=== PATIENT | female | born 1985 | race Caucasian/White ===

== ENCOUNTER 2019-02-09 16:34 | Inpatient (IN) | payer MEDICAID ==
[2019-03-30 21:27] LABS: ADD UMIC YES; UR ASCORBIC ACID NEGATIVE (NEGATIVE); UR BACTERIA FEW /HPF (NONE SEEN); UR BILIRUBIN (Dip) NEGATIVE (NEGATIVE); UR BLOOD (Dip) 3+ mg/dL (NEGATIVE); UR CLARITY CLEAR (CLEAR); UR COLOR STRAW (YELLOW); UR GLUCOSE (Dip) NEGATIVE (NEGATIVE); UR KETONES (Dip) NEGATIVE (NEGATIVE); UR LEUKOCYTE ESTERASE (Dip) NEGATIVE Leu/ul (NEGATIVE); UR NITRITE (Dip) NEGATIVE (NEGATIVE); UR RBC 0 /HPF (0-5); UR SPECIFIC GRAVITY (Dip) 1.003 (1.003-1.030); UR TOTAL PROTEIN (Dip) NEGATIVE (NEGATIVE); UR UROBILINOGEN (Dip) NEGATIVE (NEGATIVE); UR WBC 0 /HPF (0-5)
[2019-03-30] MEDS ORDERED: LACTATED RINGER'S 1,000 ML IV (22:42)
[2019-03-30] MEDS ORDERED: IBUPROFEN 600 MG TAB PO (23:00)
[2019-03-30] MEDS ORDERED: CARBOPROST 250 MCG INJ IM (23:00)
[2019-03-30] MEDS ORDERED: METHYLERGONOVINE 0.2 MG INJ IM (23:00)
[2019-03-30] MEDS ORDERED: OXYTOCIN 30 UNITS/LR 500 ML IV (23:00)
[2019-03-30] MEDS ORDERED: MISOPROSTOL 200 MCG TAB PR (23:00)
[2019-03-30] MEDS ORDERED: BUTORPHANOL 2 MG INJ IV (23:00)
[2019-03-30] MEDS: LACTATED RINGER'S 1,000 ML IV (23:24)
[2019-03-30 23:34] LABS: ADD MAN DIFF? NO
[2019-03-30 23:37] LABS: WHITE BLOOD COUNT 9.5 10^3/ul (4.8-10.8)
[2019-03-30 23:37] LABS: ABNORMAL IP MESSAGE 1; BASOPHIL # 0.1 10^3/ul (0.0-0.1); BASOPHILS % 0.6 % (0.0-2.0); EOSINOPHILS # 0.1 10^3/ul (0.0-0.5); EOSINOPHILS % 1.1 % (0.0-7.0); HEMATOCRIT 36.3 % (37.0-47.0); HEMOGLOBIN 12.1 g/dl (12.0-16.0); LYMPHOCYTES # 1.8 10^3/ul (0.8-2.9); LYMPHOCYTES % 18.5 % (15.0-51.0); MEAN CORPUSCULAR HEMOGLOBIN 30.3 pg (29.0-33.0); MEAN CORPUSCULAR HGB CONC 33.3 g/dl (32.0-37.0); MEAN PLATELET VOLUME 10.7 fl (7.4-10.4); MONOCYTE # 0.7 10^3/ul (0.3-0.9); MONOCYTES % 7.1 % (0.0-11.0); NEUTROPHIL # 6.8 10^3/ul (1.6-7.5); PLATELET COUNT 259 10^3/UL (140-415); RED BLOOD COUNT 3.99 10^6/ul (4.20-5.40); RED CELL DISTRIBUTION WIDTH 22.9 % (11.5-14.5)
[2019-03-30 23:49] LABS: POSITIVE DIFF @See below
[2019-03-30 23:56] LABS: INR 0.81; PROTIME 11.3 Sec (11.9-14.9); PT RATIO 0.9
[2019-03-30 23:57] LABS: PARTIAL THROMBOPLASTIN TIME 26.9 Sec (23.0-35.0)
[2019-03-31 00:23] LABS: HEPATITIS B SURFACE ANTIGEN NEGATIVE (NEGATIVE)
[2019-03-31] MEDS: BUTORPHANOL 2 MG INJ IV (01:33)
[2019-03-31] MEDS: LACTATED RINGER'S 1,000 ML IV (02:34)
[2019-03-31] MEDS: OXYTOCIN 30 UNITS/LR 500 ML IV ×3 (03:23→03:31)
[2019-03-31] MEDS ORDERED: OXYTOCIN 30 UNITS/LR 500 ML IV (03:30)
[2019-03-31] MEDS ORDERED: CARBOPROST 250 MCG INJ IM (03:30)
[2019-03-31] MEDS ORDERED: MISOPROSTOL 200 MCG TAB PR (03:30)
[2019-03-31] MEDS ORDERED: ACETAMINOPHEN 325 MG TAB PO (03:30)
[2019-03-31] MEDS ORDERED: METHYLERGONOVINE 0.2 MG INJ IM (03:30)
[2019-03-31] MEDS ORDERED: NACL 0.9% 3 ML SYG IV (03:30)
[2019-03-31] MEDS ORDERED: ONDANSETRON 4 MG INJ IV (03:30)
[2019-03-31] MEDS: LIDOCAINE 1% (MPF) 30 ML INJ INJ (03:31)
[2019-03-31] MEDS: IBUPROFEN 600 MG TAB PO ×4 (05:20→23:46)
[2019-03-31] MEDS: LEVOTHYROXINE 50 MCG TAB PO (06:23)
[2019-03-31] MEDS: SENNA/DOCUSATE NA (8.6MG/50MG) TAB PO ×2 (09:04→21:27)
[2019-03-31] MEDS: LANOLIN HPA 1 PKT TOP (14:52)
[2019-03-31 14:57] LABS: RAPID PLASMA REAGIN NONREACTIVE (NR)
[2019-04-01] MEDS: IBUPROFEN 600 MG TAB PO ×4 (05:42→23:48)
[2019-04-01] MEDS: LEVOTHYROXINE 50 MCG TAB PO (06:17)
[2019-04-01] MEDS: SENNA/DOCUSATE NA (8.6MG/50MG) TAB PO ×2 (09:10→21:28)
[2019-04-01 11:29] LABS: ADD MAN DIFF? NO
[2019-04-01 11:38] LABS: ABNORMAL IP MESSAGE 1; BASOPHIL # 0.1 10^3/ul (0.0-0.1); BASOPHILS % 0.7 % (0.0-2.0); EOSINOPHILS # 0.1 10^3/ul (0.0-0.5); EOSINOPHILS % 1.2 % (0.0-7.0); HEMATOCRIT 34.7 % (37.0-47.0); HEMOGLOBIN 11.4 g/dl (12.0-16.0); LYMPHOCYTES % 18.2 % (15.0-51.0); MEAN CORPUSCULAR HEMOGLOBIN 30.6 pg (29.0-33.0); MEAN CORPUSCULAR HGB CONC 32.9 g/dl (32.0-37.0); MEAN CORPUSCULAR VOLUME 93.3 fl (82.0-101.0); MEAN PLATELET VOLUME 10.4 fl (7.4-10.4); MONOCYTE # 0.7 10^3/ul (0.3-0.9); MONOCYTES % 6.7 % (0.0-11.0); NEUTROPHIL # 7.8 10^3/ul (1.6-7.5); NEUTROPHILS % 72.1 % (39.0-77.0); PLATELET COUNT 284 10^3/UL (140-415); RED BLOOD COUNT 3.72 10^6/ul (4.20-5.40)
[2019-04-01 11:38] LABS: WHITE BLOOD COUNT 10.8 10^3/ul (4.8-10.8)
[2019-04-01 11:41] LABS: POSITIVE DIFF @See below
[2019-04-01] MEDS: LANOLIN HPA 1 PKT TOP (23:47)
[2019-04-02] MEDS: IBUPROFEN 600 MG TAB PO ×2 (05:44→12:03)
[2019-04-02] MEDS: LEVOTHYROXINE 50 MCG TAB PO (05:44)
[2019-04-02] MEDS: SENNA/DOCUSATE NA (8.6MG/50MG) TAB PO (09:36)
== END 2019-04-02 16:20 | disposition home or self-care (01) | DRG 807 ==
LOC: OBT 16:34 → MS1 03-31 04:28 → L-D 03-30 20:49 → PP1 03-31 20:25 → OBT 03-30 22:35 → L-D 03-30 22:35
PROC: 10E0XZZ Delivery of Products of Conception, External Approach (ICD-10-PCS; principal; 2019-03-31)
PROC: 0HQ9XZZ Repair Perineum Skin, External Approach (ICD-10-PCS; 2019-03-31)
DX: O70.0 First degree perineal laceration during delivery (principal); Z37.0 Single live birth; Z3A.40 40 weeks gestation of pregnancy
CPT/HCPCS: 76815; 76818; 81001; 85025; 85610; 85730; 86592; 86850; 86900; 86901; 87086; 87340